=== PATIENT | female | born 1975 | race Caucasian/White ===

== ENCOUNTER 2017-03-05 21:24 | Emergency (ER) | payer OTHER ==
--- NOTE | 2017-03-05 21:34 | UC ---
Abdominal Pain Female HPI - HPI Summary HPI Summary: 41 YEAR OLD FEMALE PRESENTS WITH COMPLAINS OF ABDOMINAL DISTENSION AND BLEEDING 1 WEEK AFTER DELIVERING HER 3RD CHILD. I AM CONCERNED ABOUT RETAINED REMENANTS AND WILL SEND HER TO THE ER. - History of Current Complaint Stated Complaint: PERSONAL Time Seen by Provider: 03/05/17 21:30 Allergies/Adverse Reactions: Allergies Allergy/AdvReac Type Severity Reaction Status Date / Time No Known Allergies Allergy Verified 05/12/14 13:23 Home Medications: Home Medications Vitamins With Iron 1 tab PO DAILY 03/05/17 [History Confirmed 03/05/17] PMH/Surg Hx/FS Hx/Imm Hx Previously Healthy: Yes Review of Systems Constitutional: Negative Skin: Negative Eyes: Negative ENT: Negative Respiratory: Negative Cardiovascular: Negative Gastrointestinal: Abdominal Pain Genitourinary: Other - vaginal bleeding after Motor: Negative Neurovascular: Negative Musculoskeletal: Negative Neurological: Negative Psychological: Negative All Other Systems Reviewed And Are Negative: Yes Physical Exam Triage Information Reviewed: Yes Eye Exam: Normal ENT Exam: Normal Dental Exam: Normal Neck exam: Normal Neck: Positive: 1 Respiratory Exam: Normal Cardiovascular Exam: Normal Abdominal Exam: Normal Musculoskeletal Exam: Normal Neurological Exam: Normal Psychological Exam: Normal Skin Exam: Normal Abd Pain Female Course/Dx - Differential Dx/Diagnosis Provider Diagnoses: bleeding Discharge - Discharge Plan Condition: Stable Disposition: HOME Patient Education Materials: Acute Abdominal Pain (ED), Bleeding (ED ) Referrals: Feli Pisano MD [Primary Care Provider] - If Needed Additional Instructions: PLEASE GO TO ER TO RULE OUT RETAINING REMNANTS.
[2017-03-05 21:41] VITALS: BP 150/90
== END 2017-03-05 21:47 | disposition home or self-care (01) ==
LOC: UCEAST 21:24
DX: O72.1 Other immediate postpartum hemorrhage (principal)
CPT/HCPCS: 99211; G0463

== ENCOUNTER 2017-03-05 22:07 | Emergency (ER) | payer BC, OTHER ==
[2017-03-05] MEDS ORDERED: NS 0.9% 1000 ML* 1,000 ML IV ONE (23:21)
[2017-03-06 00:13] LABS: Hematocrit 31 % (35-47); Hemoglobin 10.5 g/dl (12.0-16.0); Mean Corpuscular HGB Conc 34 g/dl (31-36); Mean Corpuscular Hemoglobin 34 pg (27-31); Mean Corpuscular Volume 100 fL (80-97); Mean Platelet Volume 7 um3 (7.4-10.4); Red Cell Distribution Width 13 % (10.5-15); White Blood Count 7.9 10^3/ul (3.5-10.8)
[2017-03-06 00:18] LABS: BUN/Creatinine Ratio 12.3 (8-20); Calcium 8.5 mg/dL (8.6-10.3); EGFR African American 129.8 (>60); Potassium 3.9 mmol/L (3.5-5.0)
[2017-03-06 01:05] VITALS: BP 146/85
--- NOTE | 2017-03-06 08:04 | RAD ---
INDICATION: Uterine bleeding COMPARISON: Pelvic sonogram May 12, 2014 TECHNIQUE: Longitudinal and transverse transabdominal scans of the pelvis were obtained. FINDINGS: Uterus: The uterus is enlarged and mildly heterogeneous consistent with being recently . The uterus measures 17.1 x 7.2 x 12.6 cm. Endometrial thickness: The endometrium is mildly thickened and heterogeneous measuring 1.3 cm. This likely reflects a small amount of blood. Scant retained products are not excluded. Free fluid: There is no significant free fluid . Ovaries: The ovaries are normal in size. The right ovary measures 3.2 x 1.6 x 2.6 cm. The left ovary measures 2.4 x 1.2 x 2.3 cm. . Doppler interrogation demonstrates flow to each ovary. Other: None IMPRESSION: POST UTERUS. HETEROGENEOUS AND MILDLY THICKENED ENDOMETRIUM NOTED ABOVE MAY REFLECT A SMALL AMOUNT OF BLOOD VERSUS RETAINED PRODUCTS. SUGGEST FOLLOW-UP FOR PERSISTENT BLEEDING.
--- NOTE | 2017-03-12 06:23 | ED ---
Amrit Clayton SooYoung, scribed for Mohsen Olea MD on 03/05/17 at 2319 . - HPI Summary HPI Summary: A 41 y/o F referred by E for U/S presents to ED after a home three days ago with c/o "feeling weird" and feels her abd is distended. She notes that the went fine, it took about 30 minutes for the placenta to come out. Earlier today, had mild vaginal bleeding, but it has since ceased. She states passing a large blood clot three nights ago after the . Recently switched to [facility] OB-SPRINKLER REPAIR TECHNICIAN, has been seeing a fabrication operator regularly. - History of Current Complaint Chief Complaint: EDOBProblems Stated Complaint: HOMEBIRTH COMPLICATIONS Time Seen by Provider: 03/05/17 23:15 Hx Obtained From: Patient, Medical Records Chief Complaint: Pain Onset/Duration: Started Days Ago, Still Present Timing: Constant Current Severity: Mild Pain Intensity: 0 - out of 10 - Assessment Hx Now: No Hx Hysterectomy: No - Allergies/Home Medications Allergies/Adverse Reactions: Allergies Allergy/AdvReac Type Severity Reaction Status Date / Time No Known Allergies Allergy Verified 05/12/14 13:23 PMH/Surg Hx/FS Hx/Imm Hx Previously Healthy: No Endocrine/Hematology History: Denies: Hx Diabetes, Hx Thyroid Disease Cardiovascular History: Denies: Hx Hypertension Respiratory History: Denies: Hx Asthma, Hx Chronic Obstructive Pulmonary Disease (COPD) GI History: Denies: Hx Ulcer Musculoskeletal History: Denies: Hx Rheumatoid Arthritis, Hx Osteoporosis Infectious Disease History: Denies: Hx Clostridium Difficile, Hx Hepatitis, Hx Human Immunodeficiency Virus (HIV), Hx of Known/Suspected MRSA, Hx Shingles, Hx Tuberculosis, Hx Known/ Suspected VRE, Hx Known/Suspected VRSA, History Other Infectious Disease, Traveled Outside the [place] in Last 30 Days - Family History Known Family History: Positive: Cardiac Disease, Hypertension, Other - stroke - Social History Occupation: Unemployed - HOMEMAKER Lives: With Family Alcohol Use: None Substance Use Type: Reports: None Smoking Status (MU): Never Smoked Tobacco Review of Systems Negative: Fever Positive: Other - pos: abd distension Positive: discharge - pos: vaginal bleeding, since resolved All Other Systems Reviewed And Are Negative: Yes Physical Exam - Physical Exam Triage Information Reviewed: Yes Vital Signs Reviewed: Yes Appearance: Positive: Well-Appearing, No Pain Distress Skin: Positive: Warm Head/Face: Positive: Normal Head/Face Inspection Eyes: Positive: BARBIE ENT: Positive: Hearing grossly normal Neck: Positive: Supple, Nontender Respiratory/Lung Sounds: Positive: Breath Sounds Present Cardiovascular: Positive: RRR Abdomen Description: Positive: Nontender, Soft Bowel Sounds: Positive: Present, Other - mild uterine enlargement Musculoskeletal: Positive: Strength/ROM Intact Neurological: Positive: Alert, Oriented to Person Place, Time Psychiatric: Positive: Affect/Mood Appropriate Diagnostics - Vital Signs Vital Signs Temp Pulse Resp BP Pulse Ox 03/05/17 22:21 98.6 F 80 20 139/84 99 - Laboratory Lab Results: Lab Results 03/05/17 03/05/17 Range/Units 23:54 23:54 WBC 7.9 (3.5-10.8) 10^3/ul RBC 3.10 L (4.0-5.4) 10^6/ul Hgb 10.5 L (12.0-16.0) g/dl Hct 31 L (35-47) % MCV 100 H (80-97) fL MCH 34 H (27-31) pg MCHC 34 (31-36) g/dl RDW 13 (10.5-15) % Plt Count 209 (150-450) 10^3/ul MPV 7 L (7.4-10.4) um3 Neut % (Auto) 78.5 (38-83) % Lymph % (Auto) 14.6 L (25-47) % Lawrence % (Auto) 4.2 (1-9) % Eos % (Auto) 2.6 (0-6) % Baso % (Auto) 0.1 (0-2) % Absolute Neuts (auto) 6.2 (1.5-7.7) 10^3/ul Absolute Lymphs (auto) 1.2 (1.0-4.8) 10^3/ul Absolute Monos (auto) 0.3 (0-0.8) 10^3/ul Absolute Eos (auto) 0.2 (0-0.6) 10^3/ul Absolute Basos (auto) 0 (0-0.2) 10^3/ul Absolute Nucleated RBC 0.01 10^3/ul Nucleated RBC % 0.1 Sodium 138 (133-145) mmol/L Potassium 3.9 (3.5-5.0) mmol/L Chloride 107 (101-111) mmol/L Carbon Dioxide 27 (22-32) mmol/L Anion Gap 4 (2-11) mmol/L BUN 8 (6-24) mg/dL Creatinine 0.65 (0.51-0.95) mg/dL Est GFR ( Amer) 129.8 (>60) Est GFR (Non-Af Amer) 101.0 (>60) BUN/Creatinine Ratio 12.3 (8-20) Glucose 97 (70-100) mg/dL Calcium 8.5 L (8.6-10.3) mg/dL Beta HCG, Quant 1311.35 mIU/mL Result Diagrams: 03/05/17 23:54 03/05/17 23:54 Lab Statement: Any lab studies that have been ordered have been reviewed, and results considered in the medical decision making process. - Ultrasound No standard instances Ultrasound Interpretation: Positive (See Comments) - FINDINGS: Uterus is enlarged. The endometrium is thickened up to 12.8 mm and is heterogenous with both solid and fluid components. Therefore, in a patient with persistent bleeding, retained products of conception must be considered. Followup recommended. Normal ovaries bilaterally. Positive Dopppler blood flow to both ovaries. No free fluid. Ultrasound Interpretation Completed By: Radiologist Re-Evaluation - Re-Evaluation 1 Re-Evaluation Time: 01:02 Change: Improved Comment: Discussing results with pt. Course/Dx - Course Course Of Treatment: Pt is a 41 y/o F referred by E for U/S presenting after a home three days ago with c/o "feeling weird" and feels her abd is distended. She notes that the went fine, it took about 30 minutes for the placenta to come out. Earlier today, had mild vaginal bleeding, but it has since ceased. She states passing a large blood clot three nights ago after the . Recently switched to [facility] OB-SPRINKLER REPAIR TECHNICIAN, has been seeing fabrication operator regularly. Blood work results are without significant abnormalities. Pt given fluids in ED. Pelvic/Transvaginal U/S found "Uterus is enlarged. The endometrium is thickened up to 12.8 mm and is heterogenous with both solid and fluid components. Therefore, in a patient with persistent bleeding, retained products of conception must be considered. Followup recommended. Normal ovaries bilaterally. Positive Dopppler blood flow to both ovaries. No free fluid.". Will D/C home to f/u with OB-SPRINKLER REPAIR TECHNICIAN tomorrow. - Diagnoses Provider Diagnoses: Products of conception, retention, Vaginal bleeding Discharge - Discharge Plan Condition: Stable Disposition: HOME Patient Education Materials: Bleeding (ED) Referrals: Feli Pisano MD [Primary Care Provider] - Dontae Valdez MD [Medical Doctor] - 1 Day () Additional Instructions: Follow up with Dr. Valdez, OB-SPRINKLER REPAIR TECHNICIAN tomorrow. Please return to the ED if you experience new or worsening symptoms. The documentation as recorded by the Amrit fajardo SooYoung accurately reflects the service I personally performed and the decisions made by me, Mohsen Olea MD.
== END 2017-03-06 01:12 | disposition home or self-care (01) ==
LOC: ED 22:07
DX: O90.89 Other complications of the puerperium, not elsewhere classified (principal); N93.9 Abnormal uterine and vaginal bleeding, unspecified
CPT/HCPCS: 36415; 76856; 80048; 84702; 85025; 99282

== ENCOUNTER 2017-04-11 10:44 | Day surgery (SDC) | payer BC ==
[~2017-04-11 10:44] MED LIST: Buffered Lidocaine 0.9% SYRIN* 5 ML/SYR SYRINGE INTRADERM ONE
[2017-04-11] MEDS ORDERED: Buffered Lidocaine 0.9% SYRIN* 5 ML/SYR SYRINGE ONE (10:45)
[2017-04-11] MEDS ORDERED: ceFAZolin 2 GM PREMIX (*) 50 ML IVPB ONE (10:46)
[2017-04-11 11:06] LABS: Hematocrit 41 % (35-47); Mean Corpuscular HGB Conc 34 g/dl (31-36); Mean Corpuscular Hemoglobin 33 pg (27-31); Mean Corpuscular Volume 96 fL (80-97); Mean Platelet Volume 8 um3 (7.4-10.4); Red Blood Count 4.32 10^6/ul (4.0-5.4); Red Cell Distribution Width 12 % (10.5-15)
[2017-04-11] MEDS ORDERED: fentaNYL* 50 MCG/ML 2 ML VIAL (100 MCG VIAL) ONE (11:55)
[2017-04-11] MEDS ORDERED: Midazolam* 1 MG/ML 2 ML VIAL (2 MG) ONE (11:55)
[2017-04-11] MEDS ORDERED: Chloroprocaine 2%* 20 ML VIAL ONE (11:57)
[2017-04-11] MEDS ORDERED: oxyCODONE/Acetamin 5/325 MG* TAB PO PRN (12:17)
[2017-04-11] MEDS ORDERED: Ketorolac INJ* 30 MG/ML 1 ML VIAL IV PRN (12:17)
[2017-04-11 14:12] VITALS: BP 122/86
--- NOTE | 2017-04-12 04:08 | OP ---
DATE OF OPERATION: 04/11/17 [facility] DATE OF : 77 SURGEON: Dr. Wynn. CAR RACER: Dr. Giron. ANESTHESIOLOGIST: Dr. Russo. ANESTHESIA: Spinal. PRE-OP DIAGNOSIS: Persistent bleeding, , retained products of conception on ultrasound. POST-OP DIAGNOSIS: Persistent bleeding, , retained products of conception on ultrasound. OPERATIVE PROCEDURE: Exam under anesthesia, dilation, hysteroscopy, curettage under ultrasound guidance. ESTIMATED BLOOD LOSS: Minimal, less than 20 cc. FINDINGS: Small retroverted uterus, no adnexal masses palpated. There was white tissue seen at the fundus and some along the posterior wall of the uterus. COMPLICATIONS: None. SPONGE COUNT: Correct x2. CONDITION: The patient was brought to recovery room, awake and in stable condition. DESCRIPTION OF PROCEDURE: The patient was brought to the operating room. When spinal anesthesia was found to be adequate, the patient was prepped and draped in usual sterile fashion in the dorsal lithotomy position. Exam under anesthesia was performed with the above findings noted. Weighted speculum was placed in the vagina. The anterior lip of the cervix was grasped with a single tooth tenaculum and the cervix was gently and easily dilated with graduated Lau dilators. The hysteroscope was introduced with the above findings noted. Curettage was performed. A white-appearing tissue was removed and sent to pathology. When a good uterine cry was noted throughout, a transvaginal ultrasound was performed and a thin endometrium was seen. All instruments were removed from the vagina and the patient was brought to the recovery room awake and in stable condition and the tissue was sent to pathology in formalin. [id number]/[facility] #: [id number] MTDD
== END 2017-04-11 14:55 | disposition home or self-care (01) ==
LOC: OR 10:44
PROVIDERS: ATTEND Obstetrics & Gynecology
DX: O73.1 Retained portions of placenta and membranes, without hemorrhage (principal); Z87.891 Personal history of nicotine dependence
CPT/HCPCS: 36415; 81025; 85025; 86850; 86870; 86880; 86900; 86901; 88305; J0690; J2250; J2400; J3010